=== PATIENT | female | born 1985 | race Caucasian/White ===

== ENCOUNTER 2016-06-19 18:30 | Emergency (ER) | payer BC ==
[~2016-06-19] VITALS: Ht 167.6 cm; Wt 77.6 kg
[~2016-06-19 18:30] MED LIST: BCPILLS PO; EPP3/2 IM; LEVO-459 PO; LISI-461 PO; VNTHFA/IN INH
[2016-06-19 18:39] VITALS: TEMP 36.7; Ht 167.6 cm; Wt 77.6 kg
[2016-06-19] MEDS ORDERED: ONDANSETRON INJ 2 MG/ML 2 ML VIAL IV STA (19:30)
[2016-06-19] MEDS ORDERED: SODIUM CHLORIDE 0.9% 500ML 500 ML IV STA (19:30)
[2016-06-19 19:36] LABS: BASO % 0.2 %; BASO ABS # 0.02 K/uL (0-0.2); COMPLETE YES; EOS % 0.9 %; HEMATOCRIT 38.2 % (37-47); IG% 0.2 %; LYMPH % 20.7 %; LYMPH ABS # 2.69 K/uL (1.2-3.4); MEAN CELL VOLUME 85.3 fL (80-100); MEAN CORPUSCULAR HEMOGLOBIN 29.7 pg (25-34); MEAN CORPUSCULAR HGB CONC 34.8 g/dl (32-36); MEAN PLATELET VOLUME 10.6 fL (7.4-10.4); MONO % 8.8 %; NEUT % 69.2 %; PLATELET COUNT 326 K/uL (130-400); RED BLOOD COUNT 4.48 M/uL (4.2-5.4); WHITE BLOOD COUNT 13.01 K/uL (4.8-10.8)
[2016-06-19 19:55] LABS: URINE APPEARANCE CLEAR (CLEAR); URINE BILIRUBIN NEG (NEG); URINE COLOR YELLOW; URINE EPITHELIAL CELL AUTO >30 /lpf (0-5); URINE NITRITE NEG (NEG); URINE SPECIFIC GRAVITY 1.013 (1.000-1.030); UROBILINOGEN NEG (NEG); ZZUR CULT IF INDIC CLEAN CATCH NO
[2016-06-19 19:58] LABS: MANUAL MICROSCOPIC REQUIRED? NO; REVIEW REQ? NO
[2016-06-19 20:02] LABS: BUN/CREATININE RATIO 13.3 (10-20); CALCIUM 9.5 mg/dl (8.5-10.1); CREATININE 0.98 mg/dl (0.60-1.20); POTASSIUM 4.1 mmol/L (3.5-5.1)
--- NOTE | 2016-06-19 21:35 | DIAGNOSTIC IMAGING REPORT ---
ABDOMINAL ULTRASOUND, RIGHT UPPER QUADRANT HISTORY: Right upper quadrant abdominal pain.. COMPARISON: Abdominal ultrasound and CT 03/01/2016. FINDINGS: Pancreas: Bulbous appears a pancreatic head is unchanged compared to the prior CT. Therefore, this is likely within the range of normal limits. Pancreatic echotexture is within normal limits. Liver: No change in the 1.3 cm hypoechoic nodule either within or adjacent to the left hepatic lobe. Gallbladder: No gallbladder wall thickening. No gallstones. CBD: 4 mm. Right kidney: No hydronephrosis. IMPRESSION: 1. No significant change compared to prior study. 2. Normal gallbladder. No gallstones. 3. No change in 1.3 cm hypoechoic nodule either within or adjacent to the left hepatic lobe. Of note, there is no definite corresponding abnormality seen on the prior CT at this location. Electronically signed by: Terry Mackey M.D. 06/19/2016 9:33 PM Dictated Date/Time: 06/19/2016 9:28 PM
[2016-06-19 22:34] VITALS: BP 127/76; PULSE 76; O2SAT 99
--- NOTE | 2016-06-20 00:41 | EMERGENCY ROOM VISIT NOTE ---
History Report prepared by Lisa: Elvia Mcdowell Under the Supervision of: Dr. Josh Bernal D.O. First contact with patient: 19:09 Chief Complaint: ABDOMINAL PAIN Stated Complaint: STOMACH PAINS Nursing Triage Summary: pt reports abd pain. Ongoing since /Mar. seen by PCP today, "the test results arent back yet. they took blood, urine and did a CT scan". now worsening. denies n/v/d. History of Present Illness The patient is a 31 year old female who presents to the Emergency Room with complaints of worsening epigastric abdominal pain that started 3 months ago. The patient was admitted to the hospital 3 months ago for a kidney infection and she state that she has been experiencing symptoms since then, but the abdominal pain has been getting progressively worse. The pain radiates into both sides of her abdomen and wraps around in to her back. Nothing makes the pain better or worse and it does not seem to be correlated to movement or eating and drinking. She is also experiencing nausea and diarrhea, but denies any urinary symptoms. Her most recent bowel movement was this morning. The patient saw her PCP earlier today and had an outpatient CT done at [facility] along with blood work and an urine sample. The patient's abdomen and pelvis CT from 1350 today without IV or oral contrast showed no acute pathology. Her UA was negative, her BMP was unremarkable, and she had leukocytosis at 12,000. The patients last normal menstrual period was last week. She denies any previous abdominal surgeries, so she still has her gallbladder and appendix. 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 Source of History: patient Onset: 3 months ago Position: abdomen (epigastric) Timing: worsening Associated Symptoms: + back pain, + diarrhea, + nausea, No urinary symptoms Review of Systems See HPI for pertinent positives & negatives. A total of 10 systems reviewed and were otherwise negative. 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 (4) Wilms' tumor Family History Heart disease Hypertension Kidney disease Kidney stones Lung disease Social History Smoking Status: Never Smoker Drug Use: none Marital Status: Housing Status: lives with family Current/Historical Medications Scheduled Albuterol Hfa (Ventolin Hfa), 2-4 PUFFS INH Q6H Control Pills ( Control Pills), 1 TAB PO DAILY Lisinopril (Lisinopril), 10 MG PO DAILY Scheduled PRN Epinephrine (Epipen), 0.3 MG IM UD PRN for ALLERGIC REACTION Allergies Coded Allergies: BEE STING (Verified Allergy, Intermediate, HIVES,SOB ,SHOCK, 06/19/16) Hydrocodone (Verified Adverse Reaction, Intermediate, N&V, 06/19/16) Physical Exam Vital Signs Date Time Temp Pulse Resp B/P Pulse Ox O2 Delivery O2 Flow Rate FiO2 06/19/16 22:34 76 18 127/76 99 06/19/16 21:28 79 16 132/73 98 Room Air 06/19/16 18:39 36.7 89 18 129/81 95 Room Air Physical Exam GENERAL: alert, sitting up in bed, well appearing, well nourished, no acute distress, non-toxic EYE EXAM: normal conjunctiva OROPHARYNX: no exudate, no erythema, lips, buccal mucosa, and tongue normal and mucous membranes are moist NECK: supple, no nuchal rigidity, no adenopathy, non-tender LUNGS: Clear to auscultation. Normal chest wall mechanics HEART: no murmurs, S1 normal and S2 normal ABDOMEN: abdomen soft, mildly tender in the epigastric region, normo-active bowel sounds, no masses, no rebound or guarding. BACK: Back is symmetrical on inspection and there is no deformity, no midline tenderness, no CVA tenderness. SKIN: no rashes and no bruising UPPER EXTREMITIES: upper extremities are grossly normal. LOWER EXTREMITIES: No pitting edema. NEURO EXAM: Normal sensorium, cranial nerves II-XII grossly intact, normal speech, no gross weakness of arms, no gross weakness of legs. Medical Decision & Procedures ER Provider Diagnostic Interpretation: US results have been interpreted by the radiologist and reviewed by me. ABDOMINAL ULTRASOUND, RIGHT UPPER QUADRANT IMPRESSION: 1. No significant change compared to prior study. 2. Normal gallbladder. No gallstones. 3. No change in 1.3 cm hypoechoic nodule either within or adjacent to the left hepatic lobe. Of note, there is no definite corresponding abnormality seen on the prior CT at this location. Laboratory Results 06/19/16 19:19 Red Blood Count 4.48, Mean Corpuscular Volume 85.3, Mean Corpuscular Hemoglobin 29.7, Mean Corpuscular Hemoglobin Concent 34.8, Mean Platelet Volume 10.6, Neutrophils (%) (Auto) 69.2, Lymphocytes (%) (Auto) 20.7, Monocytes (%) (Auto) 8.8, Eosinophils (%) (Auto) 0.9, Basophils (%) (Auto) 0.2, Neutrophils # (Auto) 9.02, Lymphocytes # (Auto) 2.69, Monocytes # (Auto) 1.14, Eosinophils # (Auto) 0.12, Basophils # (Auto) 0.02 06/19/16 19:19 Test 06/19/16 19:19 06/19/16 19:37 White Blood Count 13.01 K/uL (4.8-10.8) Red Blood Count 4.48 M/uL (4.2-5.4) Hemoglobin 13.3 g/dL (12.0-16.0) Hematocrit 38.2 % (37-47) Mean Corpuscular Volume 85.3 fL (80-100) Mean Corpuscular Hemoglobin 29.7 pg (25-34) Mean Corpuscular Hemoglobin Concent 34.8 g/dl (32-36) Platelet Count 326 K/uL (130-400) Mean Platelet Volume 10.6 fL (7.4-10.4) Neutrophils (%) (Auto) 69.2 % Lymphocytes (%) (Auto) 20.7 % Monocytes (%) (Auto) 8.8 % Eosinophils (%) (Auto) 0.9 % Basophils (%) (Auto) 0.2 % Neutrophils # (Auto) 9.02 K/uL (1.4-6.5) Lymphocytes # (Auto) 2.69 K/uL (1.2-3.4) Monocytes # (Auto) 1.14 K/uL (0.11-0.59) Eosinophils # (Auto) 0.12 K/uL (0-0.5) Basophils # (Auto) 0.02 K/uL (0-0.2) RDW Standard Deviation 40.8 fL (36.4-46.3) RDW Coefficient of Variation 13.0 % (11.5-14.5) Immature Granulocyte % (Auto) 0.2 % Immature Granulocyte # (Auto) 0.02 K/uL (0.00-0.02) Anion Gap 10.0 mmol/L (3-11) Est Creatinine Clear Calc Drug Dose 89.1 ml/min Estimated GFR () 90.3 Estimated GFR (Non- 78.0 BUN/Creatinine Ratio 13.3 (10-20) Calcium Level 9.5 mg/dl (8.5-10.1) Total Bilirubin 0.4 mg/dl (0.2-1) Direct Bilirubin 0.1 mg/dl (0-0.2) Aspartate Amino Transf (AST/SGOT) 22 U/L (15-37) Alanine Aminotransferase (ALT/SGPT) 27 U/L (12-78) Alkaline Phosphatase 89 U/L (45-117) Total Protein 7.8 gm/dl (6.4-8.2) Albumin 3.5 gm/dl (3.4-5.0) Lipase 358 U/L (73-393) Urine Color YELLOW Urine Appearance CLEAR (CLEAR) Urine pH 5.0 (4.5-7.5) Urine Specific [place] 1.013 (1.000-1.030) Urine Protein NEG (NEG) Urine Glucose (UA) NEG (NEG) Urine Ketones 1+ (NEG) Urine Occult Blood NEG (NEG) Urine Nitrite NEG (NEG) Urine Bilirubin NEG (NEG) Urine Urobilinogen NEG (NEG) Urine Leukocyte Esterase SMALL (NEG) Urine WBC (Auto) 5-10 /hpf (0-5) Urine RBC (Auto) 0-4 /hpf (0-4) Urine Hyaline Casts (Auto) 1-5 /lpf (0-5) Urine Epithelial Cells (Auto) >30 /lpf (0-5) Urine Bacteria (Auto) NEG (NEG) Urine Test NEG (NEG) Laboratory results per my review. Medications Administered Medications (Trade) Dose Ordered Sig/Sandeep Route Start Time Stop Time Status Last Admin Dose Admin Sodium Chloride (Nss 500ml) 500 ml @ 999 mls/hr Q31M STAT IV 06/19/16 19:30 06/19/16 20:00 DC 06/19/16 19:34 999 MLS/HR Ondansetron HCl (Zofran Inj) 4 mg NOW STAT IV 06/19/16 19:30 06/19/16 19:31 DC 06/19/16 19:34 4 MG ED Course ED COURSE: Vital signs were reviewed and showed normal. The patients medical record was reviewed The above diagnostic studies were performed and reviewed. ED treatments and interventions as stated above. 1920: The patient was evaluated in room C11. A complete history and physical examination was performed. 1929: Ordered Zofran Inj 4 mg IV, Sodium Chloride 500 ml @ 999 mls/hr IV 2129: I reassessed and updated the patient. She would not like anything else for pain. 2207: Upon reevaluation, the patient is doing well. I discussed my findings with the patient and she understands and agrees with the treatment plan. Based on the patients age, coexisting illnesses, exam and lab findings the decision to treat as an outpatient was made. The patient remained stable while under my care. The patient appeared well at the time of discharge. Medical Decision Differential diagnoses includes but is not limited to gastritis, peptic ulcer disease, GERD, gallbladder disease, pancreatitis, small bowel obstruction, acute coronary syndrome, pericarditis, ischemic bowel, irritable bowel disease, irritable bowel syndrome, appendicitis, diverticulitis, malignancy, hernia, urinary tract infection, torsion, /ectopic , perforation, trauma, infectious. Patient is a 31-year-old female who presents the ER for abdominal pain in the epigastric region that has been present since early March of this past year. She notes no exacerbating or remitting factors. Does not correlate with eating and drinking. No previous abdominal surgeries. No blood in her stool. Labs are remarkable for a mild leukocytosis of 13,000. BMP along with LFTs, bilirubin and lipase were unremarkable. Urine was negative. UA was contaminated with multiple epithelial cells. She has no urinary complaints. Will not treat. She had a CT done today at 2 PM which was a non-con study which was completely unremarkable per the report from [facility]. Ultrasound of the right upper quadrant showed a normal gallbladder. Patient declined any pain meds on the ER. She was updated regards to findings. She is instructed to follow up with her primary care doctor and may benefit from following up with GI. Patient and her mother were updated at bedside. Discussed with Pt concerning signs and symptoms to watch out for. Pt was instructed to follow up with their PCP and discussed with the patient their option to return to the ED at anytime for persistent or worsening symptoms. The appropriate anticipatory guidance and out-patient management, including indications for return to the emergency department, were explained at length to the patient and understood. Impression Primary Impression: Epigastric abdominal pain Additional Impression: Leukocytosis Scribe Attestation The scribe's documentation has been prepared under my direction and personally reviewed by me in its entirety. I confirm that the note above accurately reflects all work, treatment, procedures, and medical decision making performed by me. Departure Information Dispostion Home / Self-Care Referrals Rani Dyer PA-C (PCP) Forms HOME CARE DOCUMENTATION FORM, IMPORTANT VISIT INFORMATION Patient Instructions Abdominal Pain - [facility], [facility] Additional Instructions Please follow up with your primary care doctor with in the next 24 hours. Any worsening of your symptoms, please return to the ED immediately. This includes fevers greater than 100.4, worsening abdominal pain, persistent nausea vomiting , or any other concerning signs or symptoms from your standpoint. Please take Tylenol as needed for pain. Problem Qualifiers Additional Impression: Leukocytosis Leukocytosis type: unspecified Qualified Codes: D72.829 - Elevated white blood cell count, unspecified
== END 2016-06-19 22:36 | disposition home or self-care (01) ==
LOC: C.EDB 18:31 → C.EDC 22:36
DX: R10.13 Epigastric pain (principal); D72.829 Elevated white blood cell count, unspecified; J45.909 Unspecified asthma, uncomplicated; I42.7 Cardiomyopathy due to drug and external agent; Z85.528 Personal history of other malignant neoplasm of kidney; Z90.5 Acquired absence of kidney; Z82.49 Family history of ischemic heart disease and other diseases of the circulatory system; Z84.1 Family history of disorders of kidney and ureter; Z83.6 Family history of other diseases of the respiratory system; Z79.3 Long term (current) use of hormonal contraceptives; Z79.899 Other long term (current) drug therapy

== ENCOUNTER 2016-06-24 06:46 | Emergency (ER) | payer BC ==
[~2016-06-24] VITALS: Ht 167.6 cm; Wt 76.0 kg
[~2016-06-24 06:46] MED LIST changes: -LEVO-459 PO
[2016-06-24 06:50] VITALS: TEMP 36.8; Ht 167.6 cm; Wt 76.0 kg
[2016-06-24] MEDS ORDERED: SODIUM CHLORIDE 0.9% 1000ML 1,000 ML IV STA ×2 (07:11)
[2016-06-24] MEDS ORDERED: ONDANSETRON INJ 2 MG/ML 2 ML VIAL IV STA (07:27)
[2016-06-24] MEDS ORDERED: FENTANYL CITRATE INJ 50 MCG/1 ML 2 ML VIAL IV STA (07:27)
[2016-06-24] MEDS ORDERED: FAMOTIDINE 20MG/102 ML D5W IV STA (07:27)
[2016-06-24 07:39] VITALS: O2SAT 98
[2016-06-24 07:40] LABS: BASO % 0.2 %; BASO ABS # 0.02 K/uL (0-0.2); COMPLETE YES; HEMATOCRIT 38.1 % (37-47); IG% 0.2 %; LYMPH % 17.9 %; MEAN CORPUSCULAR HGB CONC 34.9 g/dl (32-36); MONO % 6.7 %; PLATELET COUNT 319 K/uL (130-400); RED BLOOD COUNT 4.43 M/uL (4.2-5.4)
[2016-06-24 07:56] LABS: ALT/SGPT 24 U/L (12-78); AMYLASE 77 U/L (25-115); BLOOD UREA NITROGEN 13 mg/dl (7-18); BUN/CREATININE RATIO 14.7 (10-20); CALCIUM 9.2 mg/dl (8.5-10.1); CARBON DIOXIDE 24 mmol/L (21-32); CHLORIDE 106 mmol/L (98-107); GLUCOSE 93 mg/dl (70-99); POTASSIUM 4.1 mmol/L (3.5-5.1); SODIUM 138 mmol/L (136-145)
[2016-06-24 07:59] LABS: ALKALINE PHOSPHATASE 93 U/L (45-117); AST/SGOT 17 U/L (15-37)
[2016-06-24 09:40] LABS: URINE APPEARANCE CLEAR (CLEAR); URINE BILIRUBIN NEG (NEG); URINE COLOR YELLOW; URINE NITRITE NEG (NEG); URINE SPECIFIC GRAVITY 1.022 (1.000-1.030); UROBILINOGEN NEG (NEG)
[2016-06-24 09:41] LABS: MANUAL MICROSCOPIC REQUIRED? NO; REVIEW REQ? NO
[2016-06-24] MEDS ORDERED: ONDA4TAB10 SL (10:58)
[2016-06-24] MEDS ORDERED: OMEP40CA41 PO (10:58)
--- NOTE | 2016-06-24 10:59 | EMERGENCY ROOM VISIT NOTE ---
History First contact with patient: 06:58 Chief Complaint: ABDOMINAL PAIN Stated Complaint: STOMACH PAINS Nursing Triage Summary: pt to the ED with c/o diffuse abd pain for the past 1.5 week was seen here History of Present Illness Patient is a 31-year-old white female who returns to the emergency department for ongoing abdominal. She has had symptoms for about 3 months, but was most recently at her PCP and here in the emergency department just 5 days ago. She had a thorough workup performed at that time including laboratory studies, CT scan and biliary ultrasound all which were unremarkable. The patient reports that since she was here in the emergency department, her pain has gotten worse. She does as scribe that as a constant, achy, epigastric pain that she presently rates an 8/10. The pain is increasing in intensity. She states that it has her doubled over at times. She reports associated nausea, few episodes of yellow emesis, subjective fever and chills, and has had 2 loose bowel movements today, when they previously had been normal. She denies melena, hematemesis or hematochezia. She has taken nothing but Tylenol for her symptoms over the last several months. She states that after she left the emergency department here last week she was told that she would need to see gastroenterology. She has not been given a GI appointment as of yet. She denies any chronic NSAID or aspirin use. She denies any dysuria, frequency, urgency, hematuria or flank pain. She is status post nephrectomy. Her last menstrual period was 06/08. She denies any change in her prescription medications. There is no family history of any GI ailments that she is aware of. Review of Systems Review of systems as per HPI. All other systems reviewed were negative. 10 systems reviewed. 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 See Problem List. Family History Heart disease Hypertension Kidney disease Kidney stones Lung disease Social History Smoking Status: Never Smoker Drug Use: none Marital Status: Housing Status: lives with family Occupation Status: employed Current/Historical Medications Scheduled Albuterol Hfa (Ventolin Hfa), 2-4 PUFFS INH Q6H Control Pills ( Control Pills), 1 TAB PO DAILY Lisinopril (Lisinopril), 10 MG PO DAILY Omeprazole (Prilosec), 40 MG PO DAILY Scheduled PRN Epinephrine (Epipen), 0.3 MG IM UD PRN for ALLERGIC REACTION Ondasetron Odt (Zofran Odt), 4 MG SL Q6H PRN for Nausea or Vomiting Allergies Coded Allergies: BEE STING (Verified Allergy, Intermediate, HIVES,SOB ,SHOCK, 06/24/16) Hydrocodone (Verified Adverse Reaction, Intermediate, N&V, 06/24/16) Physical Exam Vital Signs Date Time Temp Pulse Resp B/P Pulse Ox O2 Delivery O2 Flow Rate FiO2 06/24/16 11:09 73 18 104/73 99 06/24/16 09:21 61 16 100/67 95 Room Air 06/24/16 08:13 62 16 110/69 96 Room Air 06/24/16 07:52 67 06/24/16 07:40 74 16 116/73 96 Room Air 06/24/16 07:39 98 Room Air 06/24/16 06:50 36.8 97 16 129/86 100 Physical Exam CONSTITUTIONAL: Patient is a well-appearing 31-year-old white female who is awake and alert and in no acute distress. EYES: Pupils equal, round, reactive to light and accommodation. EOMs intact without nystagmus. Sclera are anicteric. ENT: Tympanic membranes intact, with normal landmarks. External canals are clear. Oral and nasopharynx are clear. Mucous membranes are moist, no lesions , tongue and gums appear normal. CARDIOVASCULAR: Regular rate and rhythm, with normal S1 and S2, no murmur or gallop or rub is heard. No carotid bruits auscultated. No JVD. Peripheral pulses easy to palpable. RESPIRATORY: Breath sounds equal and clear to auscultation without wheezes, rales, or rhonchi heard. Full and equal chest expansion without accessory muscle use or retractions. GI: Bowel sounds are present. Well-healed surgical scars noted. Abdomen is soft, nondistended, tender to palpation in the epigastric region, without guarding, rebound or rigidity. MUSCULOSKELETAL: Full range of motion of extremities x 4 with good strength. No cyanosis, edema, joint tenderness or swelling. No deformity. INTEGUMENTARY: No lesions or rash, normal skin turgor. NEUROLOGICAL: Alert, oriented, and cooperative. Cranial nerves, sensation and strength grossly intact. Pupils round, equal, and react to light, EOMs are full. LYMPH: No lymphadenopathy. Medical Decision & Procedures Laboratory Results 06/24/16 07:30 Red Blood Count 4.43, Mean Corpuscular Volume 86.0, Mean Corpuscular Hemoglobin 30.0, Mean Corpuscular Hemoglobin Concent 34.9, Mean Platelet Volume 11.0, Neutrophils (%) (Auto) 74.0, Lymphocytes (%) (Auto) 17.9, Monocytes (%) (Auto) 6.7, Eosinophils (%) (Auto) 1.0, Basophils (%) (Auto) 0.2, Neutrophils # (Auto) 9.12, Lymphocytes # (Auto) 2.20, Monocytes # (Auto) 0.82, Eosinophils # (Auto) 0.12, Basophils # (Auto) 0.02 06/24/16 07:30 Test 06/24/16 07:30 06/24/16 09:18 White Blood Count 12.30 K/uL (4.8-10.8) Red Blood Count 4.43 M/uL (4.2-5.4) Hemoglobin 13.3 g/dL (12.0-16.0) Hematocrit 38.1 % (37-47) Mean Corpuscular Volume 86.0 fL (80-100) Mean Corpuscular Hemoglobin 30.0 pg (25-34) Mean Corpuscular Hemoglobin Concent 34.9 g/dl (32-36) Platelet Count 319 K/uL (130-400) Mean Platelet Volume 11.0 fL (7.4-10.4) Neutrophils (%) (Auto) 74.0 % Lymphocytes (%) (Auto) 17.9 % Monocytes (%) (Auto) 6.7 % Eosinophils (%) (Auto) 1.0 % Basophils (%) (Auto) 0.2 % Neutrophils # (Auto) 9.12 K/uL (1.4-6.5) Lymphocytes # (Auto) 2.20 K/uL (1.2-3.4) Monocytes # (Auto) 0.82 K/uL (0.11-0.59) Eosinophils # (Auto) 0.12 K/uL (0-0.5) Basophils # (Auto) 0.02 K/uL (0-0.2) RDW Standard Deviation 40.5 fL (36.4-46.3) RDW Coefficient of Variation 12.8 % (11.5-14.5) Immature Granulocyte % (Auto) 0.2 % Immature Granulocyte # (Auto) 0.02 K/uL (0.00-0.02) Anion Gap 8.0 mmol/L (3-11) Est Creatinine Clear Calc Drug Dose 96.0 ml/min Estimated GFR () 100.1 Estimated GFR (Non- 86.4 BUN/Creatinine Ratio 14.7 (10-20) Calcium Level 9.2 mg/dl (8.5-10.1) Total Bilirubin 0.3 mg/dl (0.2-1) Direct Bilirubin < 0.1 mg/dl (0-0.2) Aspartate Amino Transf (AST/SGOT) 17 U/L (15-37) Alanine Aminotransferase (ALT/SGPT) 24 U/L (12-78) Alkaline Phosphatase 93 U/L (45-117) Total Protein 7.7 gm/dl (6.4-8.2) Albumin 3.2 gm/dl (3.4-5.0) Amylase Level 77 U/L (25-115) Lipase 400 U/L (73-393) Urine Color YELLOW Urine Appearance CLEAR (CLEAR) Urine pH 5.0 (4.5-7.5) Urine Specific [place] 1.022 (1.000-1.030) Urine Protein NEG (NEG) Urine Glucose (UA) NEG (NEG) Urine Ketones NEG (NEG) Urine Occult Blood NEG (NEG) Urine Nitrite NEG (NEG) Urine Bilirubin NEG (NEG) Urine Urobilinogen NEG (NEG) Urine Leukocyte Esterase NEG (NEG) Urine Test NEG (NEG) Medications Administered Medications (Trade) Dose Ordered Sig/Sandeep Route Start Time Stop Time Status Last Admin Dose Admin Sodium Chloride 1,000 ml @ 999 mls/hr Q1H1M STAT IV 06/24/16 07:11 06/24/16 08:11 DC 06/24/16 07:31 999 MLS/HR Sodium Chloride (Nss 1000ml) 1,000 ml @ 250 mls/hr Q4H STAT IV 06/24/16 07:11 06/24/16 11:10 DC 06/24/16 09:16 250 MLS/HR Ondansetron HCl (Zofran Inj) 4 mg NOW STAT IV 06/24/16 07:27 06/24/16 07:29 DC 06/24/16 07:37 4 MG Famotidine (Pepcid 20mg/100 ml) 20 mg ONE STAT IV 06/24/16 07:27 06/24/16 07:29 DC 06/24/16 07:37 20 MG Fentanyl Citrate (Fentanyl Inj) 50 mcg NOW STAT IV 06/24/16 07:27 06/24/16 07:29 DC 06/24/16 07:37 50 MCG ED Course Patient was seen and evaluated as above. Her old records were reviewed, including her ED visit from the . IV access was obtained. Patient requested medication for discomfort. She was hydrated with normal saline solution and medicated with Zofran 4 mg, Pepcid 20 mg and fentanyl 50 g IV. CBC with differential, BMP, LFTs, amylase, lipase, urinalysis and urine test were performed. Patient's laboratory studies revealed a minimally elevated white count at 12,300 , which is from last Wednesday. Electrolytes and liver functions are within normal limits. Transaminases are not elevated. Amylase is within normal limits and lipase is just minimally elevated,. I do not suspect that this indicates acute pancreatitis and is more likely related to her recent vomiting. Urinalysis is completely clean, without signs of infection. test is negative. All laboratory and diagnostic imaging studies were reviewed with the patient and her . She has had several months of epigastric discomfort of unclear etiology. Differential diagnoses entertained include GERD, esophagitis , gastritis, peptic ulcer disease, pancreatitis, biliary colic, acute cholecystitis, cholelithiasis, ascending cholangitis, among others. She underwent a thorough workup just a few days ago, and return to the emergency Department with worsening symptoms. She has a benign abdominal exam. She has a minimally elevated lipase, otherwise laboratory studies are unremarkable. It was not felt that any repeat diagnostic imaging was indicated at this time. I did discuss a trial of a PPI with the patient, and she is in agreement. She will be placed on Prilosec 40 mg daily. Agree that she would likely benefit from GI evaluation for further workup. She was encouraged to call her primary care provider to help facilitate this. Certainly if her symptoms worsen at any point she should return to the emergency department. She expressed understanding of this and was agreeable. The patient rated her discomfort a 4/ 10 at discharge. Vital signs were stable. Medical Decision See ED course Impression Primary Impression: Epigastric abdominal pain Departure Information Prescriptions Omeprazole (PRILOSEC) 40 Mg Cap 40 MG PO DAILY, #30 CAP 1 Refill Prov: Yudelka Santos PA 06/24/16 Ondasetron Odt (ZOFRAN ODT) 4 Mg Tab 4 MG SL Q6H Y for Nausea or Vomiting, #20 TAB Prov: Yudelka Santos PA 06/24/16 Referrals Rani Dyer PA-C (PCP) Patient Instructions My [facility] Additional Instructions DO NOT drive, drink alcohol, operate machinery, or perform dangerous activities today. You were given medications in the ER that can affect your ability to safely function or operate a vehicle. Prilosec 40 mg: Take 1 tablet daily. Acetaminophen(Tylenol) may be used for fever or pain. Use 1000mg every eight hours as needed. Avoid using more than 3000mg in a 24 hour period. This is available over the counter. Zofran(odansetron) tablets 4mg: Take one and allow it to dissolve in your mouth every four hours as needed for nausea or vomiting. Read all the package inserts or medication information paperwork provided. If you have any questions or concerns call your primary provider, pharmacist or the ER for assistance. Rest and drink plenty of fluids as tolerated. Slow sips of water or sports drinks are recommended instead of large amounts all at once. Continue current medications. Once your stomach is settled start with a clear liquid diet (jello, soup broth, etc.) and then advance as tolerated. Avoid greasy, fatty or acidic foods. Return to the ER immediately for worsening or persistent abdominal pain, vomiting, fevers, chest pains, difficulty breathing, black or bloody stools, worsening of your condition, or as needed. Follow up with your primary physician in 1-2 days for a recheck of your current condition.
[2016-06-24 11:09] VITALS: BP 104/73; PULSE 73; O2SAT 99
== END 2016-06-24 11:10 | disposition home or self-care (01) ==
LOC: C.EDB 06:46
DX: R10.13 Epigastric pain (principal); J45.909 Unspecified asthma, uncomplicated; I42.7 Cardiomyopathy due to drug and external agent; Z85.528 Personal history of other malignant neoplasm of kidney; Z90.5 Acquired absence of kidney; Z82.49 Family history of ischemic heart disease and other diseases of the circulatory system; Z84.1 Family history of disorders of kidney and ureter; Z83.6 Family history of other diseases of the respiratory system; Z79.899 Other long term (current) drug therapy; Z79.3 Long term (current) use of hormonal contraceptives

== ENCOUNTER → 2017-01-21 | Day surgery (SDC) | payer BC ==
[2017-01-20 08:15] VITALS: Ht 166.4 cm; Wt 81.8 kg
[~2017-01-21] VITALS: Ht 166.4 cm; Wt 81.8 kg
[~2017-01-21] MED LIST changes: +FENTANYL CITRATE INJ 50 MCG/1 ML 2 ML VIAL ONE; +LIDOCAINE HCL 2% 2 ML VIAL (20MG/ML) ONE; +PROPOFOL IV EMULSION 10 MG/ML 20 ML VIAL IV ONE; +RANI150T3 PO; +SODIUM CHLORIDE 0.9% 500ML 500 ML IV ONE
--- NOTE | 2017-01-21 09:54 | Endo History and Physical ---
History & Physical Date of Service: Jan 21, 2017. Chief Complaint: Reflux, epigastric burning Referring Physician: Homa History of Present Illness heartburn and epigastric burning and nausea Past Surgical History Hx Cardiac Surgery: No Hx Internal Defibrillator: No Hx Pacemaker: No Hx Abdominal Surgery: Yes (TUBAL LIGATION) Hx of Implantable Prosthesis: No Hx Post-Op Nausea and Vomiting: No Hx Cancer Surgery: Yes (WILM'S TUMOR-LEFT NEPHRECTOMY) Hx Thoracic Surgery: No Hx Orthopedic: No Hx Urinary Tract Surgery: No Family History None Social History Smoking Status: Never Smoker Hx Substance Use: No Hx Alcohol Use: No Allergies Coded Allergies: BEE STING (Verified Allergy, Intermediate, HIVES,SOB ,SHOCK, 01/20/17) Hydrocodone (Verified Adverse Reaction, Intermediate, N&V, 01/20/17) Current Medications Reported Home Medications Medications Dose Route/Sig Max Daily Dose Days Date Category Zantac (Ranitidine HCl) 150 Mg Tab 150 Mg PO HS 01/20/17 Reported Ventolin Hfa (Albuterol) 200 Puffs/18485 Mcg Aers 2-4 Puffs INH Q6H 03/01/16 Reported Control Pills (Miscellaneous) Tab 1 Tab PO QAM 12/26/13 Reported Epipen (Epinephrine) 0.3 Mg/0.3 Ml Inj 0.3 Mg IM UD PRN 12/26/13 Reported Lisinopril 10 Mg Tab 10 Mg PO QAM 12/26/13 Reported Vital Signs Weight (Kilograms): 81.82 Height (Feet): 5 Height (Inches): 5.5 Date Time Temp Pulse Resp B/P (MAP) Pulse Ox O2 Delivery O2 Flow Rate FiO2 01/21/17 09:42 36.7 79 79 111/79 (90) 97 Room Air Physical Exam General Appearance: no apparent distress Respiratory/Chest: Auscultation: breath sounds normal Cardiovascular: Heart Auscultation: RRR Abdomen: Inspection & Palpation: soft Liver: non-tender Assessment and Plan stable for EGD
--- NOTE | 2017-01-21 10:19 | Discharge Instructions ---
Endoscopy Patient Instructions Date / Procedure(s) Performed Jan 21, 2017. EGD Allergy Information Coded Allergies: BEE STING (Verified Allergy, Intermediate, HIVES,SOB ,SHOCK, 01/20/17) Hydrocodone (Verified Adverse Reaction, Intermediate, N&V, 01/20/17) Discharge Date / Findings Jan 21, 2017. normal EGD Provider Instructions Activity Restrictions - No exercising or heavy lifting for 24 hours. - Do not drink alcohol the day of the procedure. - Do not drive a car or operate machinery until the day after the procedure. - Do not make any important decisions or sign important papers in 24 hours after the procedure. Following Day: - Return to full activity which may include returning to work/school. Diet Start your diet with liquids and light foods (jello, soup, juice, toast). Then eat your usual diet if not nauseated. Treatment For Common After Affects For mild abdominal pain, bloating, or excessive gas: - Rest - Eat lightly - Lie on right side Follow-Up Information Follow-up with Homa as scheduled Anesthesia Information What You Should Know You have had a procedure that required some medicine to reduce anxiety and discomfort. This treatment is called moderate sedation. After receiving the treatment, you may be sleepy, but you will be able to breathe on your own. The effects of the treatment may last for several hours. Follow these instructions along with Activity/Diet recommendations noted above: * Do NOT do anything where dizziness or clumsiness would be dangerous. * Rest quietly at home today, then you can be up and about tomorrow. * Have a responsible person stay with you the rest of today. * You may have had an I.V. today. If so, you may take the dressing off later today. Recommendations Call your doctor if: * Trouble breathing * Continuous vomiting for more than 24 hours * Temperature above 101 degrees * Severe abdominal pain or bloating * Pain not relieved by pain medicine ordered * There is increased drainage or redness from any incision * A large amount of rectal bleeding greater than 2-3 tablespoons. (If you had a polyp/s removed or have hemorrhoids, a small amount of blood - from the rectum is to be expected.) * You have any unanswered questions or concerns. IN THE EVENT OF A SERIOUS EMERGENCY, GO TO THE NEAREST EMERGENCY ROOM Your discharge instructions were prepared by provider Manuel Camarena. Patient Instructions Signature Page Keyana Chairez Patient (or Guardian) Signature/Date: I have read and understand the instructions given to me by my caregivers. Caregiver/RN/Doctor Signature/Date: The above-named patient and/or guardian has received patient instructions on this date. + Original Patient Signature Page (only) stays with chart. Please make copy for patient.
[2017-01-21 10:46] VITALS: BP 125/87; PULSE 62; O2SAT 97
--- NOTE | 2017-01-21 10:46 | GI REPORT ---
Procedure Date: 01/21/2017 9:42 AM Procedure: Upper GI endoscopy Indications: Epigastric abdominal pain, Heartburn Medicines: See the Anesthesia note for documentation of the administered medications Complications: No immediate complications. Estimated Blood Loss: Estimated blood loss was minimal. Procedure: Pre-Anesthesia Assessment: - Prior to the procedure, a History and Physical was performed, and patient medications, allergies and sensitivities were reviewed. The patient's tolerance of previous anesthesia was reviewed. - The risks and benefits of the procedure and the sedation options and risks were discussed with the patient. All questions were answered and informed consent was obtained. - Patient identification and proposed procedure were verified prior to the procedure by the physician and the nurse. The procedure was verified in the pre-procedure area. - Pre-procedure physical examination revealed no contraindications to sedation. - After reviewing the risks and benefits, the patient was deemed in satisfactory condition to undergo the procedure. After obtaining informed consent, the endoscope was passed under direct vision. Throughout the procedure, the patient's blood pressure, pulse, and oxygen saturations were monitored continuously. The scope was introduced through the mouth, and advanced to the fourth part of the duodenum. Small bowel enteroscopy was deemed necessary due to symptoms concerning for celiac. The upper GI endoscopy was accomplished without difficulty. The patient tolerated the procedure well. Findings: The esophagus was normal. The stomach was normal. The duodenum to the 4th part was normal. Biopsies for histology were taken with a cold forceps for evaluation of celiac disease. Verification of patient identification for the specimen was done by the physician and nurse using the patient's name and medical record number. Estimated blood loss was minimal. The cardia and gastric fundus were normal on retroflexion. Impression: - Normal esophagus. - Normal stomach. - Normal duodenum to the 4th part. Biopsied. Recommendation: - Await pathology results. - Discharge patient to home. Manuel Camarena M.D. Manuel Camarena MD 01/21/2017 10:46:09 AM This report has been signed electronically. Note Initiated On: 01/21/2017 9:42 AM I attest to the content of the Intraoperative Record and orders documented therein, exceptions below
--- NOTE | 2017-01-21 12:06 | Anesthesiology Progress Note ---
Anesthesia Post Op Note Date & Time Jan 21, 2017 at 12:05 Vital Signs Pain Intensity: 0 Vital Signs Past 12 Hours Date Time Temp Pulse Resp B/P (MAP) Pulse Ox O2 Delivery O2 Flow Rate FiO2 01/21/17 10:46 62 16 125/87 (100) 97 Room Air 01/21/17 10:31 61 16 112/80 (91) 97 Room Air 01/21/17 10:16 72 13 105/76 (86) 97 Room Air 01/21/17 09:42 36.7 79 18 111/79 (90) 97 Room Air Notes Mental Status: alert / awake / arousable, participated in evaluation Pt Amnestic to Procedure: Yes Nausea / Vomiting: adequately controlled Pain: adequately controlled Airway Patency, RR, SpO2: stable & adequate BP & HR: stable & adequate Hydration State: stable & adequate Anesthetic Complications: no major complications apparent
== END | disposition home or self-care (01) ==
LOC: C.GI 09:10
PROVIDERS: ATTEND Internal Medicine Gastroenterology
DX: R10.13 Epigastric pain (principal); R12 Heartburn; J45.909 Unspecified asthma, uncomplicated; Z88.5 Allergy status to narcotic agent; Z98.51 Tubal ligation status; Z90.5 Acquired absence of kidney; Z90.89 Acquired absence of other organs

== ENCOUNTER 2017-11-22 11:31 | Emergency (ER) | payer OTHER ==
[~2017-11-22] VITALS: Ht 165.1 cm; Wt 84.1 kg
[~2017-11-22 11:31] MED LIST changes: +ACET-1505 PO; -FENTANYL CITRATE INJ 50 MCG/1 ML 2 ML VIAL ONE; -LIDOCAINE HCL 2% 2 ML VIAL (20MG/ML) ONE; -PROPOFOL IV EMULSION 10 MG/ML 20 ML VIAL IV ONE; +RANI150T2 PO; -RANI150T3 PO; -SODIUM CHLORIDE 0.9% 500ML 500 ML IV ONE
[2017-11-22 11:35] VITALS: TEMP 36.7; Ht 165.1 cm; Wt 84.1 kg
[2017-11-22] MEDS ORDERED: ALBUT/IPRATROP 3MG/0.5MG NEB 3 ML VIAL INH STA (12:15)
[2017-11-22 12:23] LABS: BASO % 0.1 %; BASO ABS # 0.01 K/uL (0-0.2); EOS % 0.8 %; EOS ABS # 0.07 K/uL (0-0.5); HEMATOCRIT 39.8 % (37-47); HEMOGLOBIN 13.6 g/dL (12.0-16.0); IG# 0.01 K/uL (0.00-0.02); LYMPH % 24.9 %; MEAN CORPUSCULAR HEMOGLOBIN 29.4 pg (25-34); MEAN CORPUSCULAR HGB CONC 34.2 g/dl (32-36); MEAN PLATELET VOLUME 12.5 fL (7.4-10.4); MONO % 8.6 %; MONO ABS # 0.76 K/uL (0.11-0.59); NEUT % 65.5 %; NEUT ABS # 5.77 K/uL (1.4-6.5); PLATELET COUNT 291 K/uL (130-400); RED CELL DISTRIBUTION WIDTH CV 13.3 % (11.5-14.5); RED CELL DISTRIBUTION WIDTH SD 40.8 fL (36.4-46.3); WHITE BLOOD COUNT 8.82 K/uL (4.8-10.8)
--- NOTE | 2017-11-22 12:25 | EMERGENCY ROOM VISIT NOTE ---
History First contact with patient: 12:04 Chief Complaint: CARDIAC ASSESSMENT Stated Complaint: TIGHTNESS IN CHEST History of Present Illness The patient is a 32 year old female who presents to the Emergency Room via private vehicle with complaints of "tightness in chest". The patient states that she last week had intermittent chest tightness/inability to catch a full breath. She states that it was not visibly worse with exertion however after walking up a hill she felt more out of breath than usual. She notes minimal discomfort that comes and goes. She states that she has history of asthma and anxiety. She also notes that she has been quite anxious lately. She notes that a portion of her heart is not as strong as it should be. She takes lisinopril to stop the deterioration. Earlier in her life she had a Wilms tumor , and received chemoradiation and subsequently he has done well. She follows with a research spec in [place]. She last saw them in December 2016. She states that now she feels as though the pain is more steady became concerned, therefore prompting her arrival here today. She rates the overall discomfort as a 4/10. No history of clots, DVT, PE, taking blood thinners, or ND. Review of Systems A complete 10-point Review of Systems was discussed with the patient, with pertinent positives and negatives listed in the History of Present Illness. All remaining Review of Systems questions can be considered negative unless otherwise specified. 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 (4) Wilms' tumor Family History Heart disease Hypertension Kidney disease Kidney stones Lung disease Social History Smoking Status: Never Smoker Alcohol Use: none Drug Use: none Marital Status: Housing Status: lives with family Occupation Status: employed Current/Historical Medications Scheduled Albuterol Hfa (Ventolin Hfa), 2 PUFFS INH Q6H Control Pills ( Control Pills), 1 TAB PO QAM Lisinopril (Lisinopril), 10 MG PO QAM Ranitidine HCl (Ranitidine HCl), 150 MG PO BID Scheduled PRN Epinephrine (Epipen), 0.3 MG IM UD PRN for ALLERGIC REACTION Physical Exam Vital Signs Date Time Temp Pulse Resp B/P (MAP) Pulse Ox O2 Delivery O2 Flow Rate FiO2 11/22/17 17:10 75 16 116/85 99 11/22/17 16:53 84 98 11/22/17 15:09 124 18 132/85 100 Room Air 11/22/17 15:01 150 28 100 Room Air 11/22/17 12:38 72 16 122/72 11/22/17 12:36 100 Room Air 11/22/17 11:48 71 11/22/17 11:35 36.7 81 16 105/82 100 Room Air Physical Exam VITAL SIGNS - Vital signs and nursing notes were reviewed. Stable. Afebrile. GENERAL -32-year-old female appearing her stated age who is in no acute distress. Communicates well with provider and answers questions appropriately. SKIN - Without rashes. No meningeal or petechial rash. HEAD - NC/AT. EYES - PERRL with EOMI bilaterally. Sclera anicteric. EARS - No deformities of external structures noted on gross examination bilaterally. NOSE - Midline and without cyanosis. No epistaxis or purulent drainage noted. MOUTH/OROPHARYNX - Without perioral cyanosis. NECK - Neck with FROM. Supple to palpation. LUNGS - Chest wall symmetric without accessory muscle use, intercostals retractions, or central cyanosis. Normal vesicular breath sounds CTA B/L. No wheezes, rales, or rhonchi appreciated. CARDIAC - RRR with S1/S2. No murmur, rubs, or gallops appreciated. ABDOMEN - Abdominal contour normal without pulsations or visible masses. BS normoactive all four quadrants. No tenderness, palpable masses, hepatosplenomegaly, or ascites noted. EXTREMITIES - No clubbing or peripheral cyanosis. No pretibial edema present. +5 /5 strength noted in UE/LE bilaterally. NEUROLOGIC - Cranial nerves II through XII grossly intact. Sensory intact to light touch throughout. PSYCH - A&Ox3 and cooperates fully with examiner. Pt is very pleasant and interacts well with examiner. Medical Decision & Procedures ER Provider Diagnostic Interpretation: CT ANGIOGRAPHY OF THE CHEST, PULMONARY EMBOLUS PROTOCOL CLINICAL HISTORY: Shortness of breath. Chest discomfort. COMPARISON STUDY: Chest CT July 22, 2010 and chest radiograph November 22, 2017. TECHNIQUE: Following IV administration of 69 mL of Optiray-320, helical axial images of the chest were obtained utilizing the pulmonary embolus protocol. Maximal intensity projections and sagittal and coronal reformats were viewed on an independent 3D workstation. IV contrast was administered without complication. A dose lowering technique was utilized adhering to the principles of ALARA. CT DOSE: 328.23 mGy.cm FINDINGS: No pulmonary emboli are identified. There is no evidence of thoracic aortic dissection. The size of the heart is normal. There is no pericardial effusion. No enlarged axillary, mediastinal or hilar lymph nodes are noted. Note is made of a 2.5 cm water attenuation left apical abnormality shown on axial image 252 of 278. This is located between the posterior aspect of the left first and second ribs and immediately posterior to the left vertebral artery. There may be associated bony remodeling without bony destruction. There is no consolidation to suggest pneumonia. No pneumothorax or pleural effusion is noted. Central airways are patent. Upper abdomen is unremarkable. IMPRESSION: 1. No pulmonary emboli identified. 2. 2.5 cm water attenuation left apical abnormality located between the first and second ribs. Differential considerations include a nerve sheath tumor, lateral meningocele and congenital cyst. An MRI of the thoracic spine with and without contrast could be obtained for further evaluation. 3. No acute intrathoracic findings. Electronically signed by: Rigo Lei M.D. 11/22/2017 2:23 PM Dictated Date/Time: 11/22/2017 1:28 PM SINGLE VIEW CHEST CLINICAL HISTORY: Chest discomfort. FINDINGS: An AP, portable, upright chest radiograph is compared to study dated 10/20/2017. The cardiomediastinal silhouette is unremarkable. The lungs and pleural spaces are clear. No pneumothorax is seen. The bony thorax is grossly intact. IMPRESSION: No active disease in the chest. Electronically signed by: Max Avina M.D. 11/22/2017 12:36 PM Dictated Date/Time: 11/22/2017 12:36 PM Laboratory Results 11/22/17 11:50 Red Blood Count 4.63, Mean Corpuscular Volume 86.0, Mean Corpuscular Hemoglobin 29.4, Mean Corpuscular Hemoglobin Concent 34.2, Mean Platelet Volume 12.5, Neutrophils (%) (Auto) 65.5, Lymphocytes (%) (Auto) 24.9, Monocytes (%) (Auto) 8.6, Eosinophils (%) (Auto) 0.8, Basophils (%) (Auto) 0.1, Neutrophils # (Auto) 5.77, Lymphocytes # (Auto) 2.20, Monocytes # (Auto) 0.76, Eosinophils # (Auto) 0.07, Basophils # (Auto) 0.01 11/22/17 11:50 Test 11/22/17 11:50 11/22/17 12:40 11/22/17 15:17 White Blood Count 8.82 K/uL (4.8-10.8) Red Blood Count 4.63 M/uL (4.2-5.4) Hemoglobin 13.6 g/dL (12.0-16.0) Hematocrit 39.8 % (37-47) Mean Corpuscular Volume 86.0 fL (80-100) Mean Corpuscular Hemoglobin 29.4 pg (25-34) Mean Corpuscular Hemoglobin Concent 34.2 g/dl (32-36) Platelet Count 291 K/uL (130-400) Mean Platelet Volume 12.5 fL (7.4-10.4) Neutrophils (%) (Auto) 65.5 % Lymphocytes (%) (Auto) 24.9 % Monocytes (%) (Auto) 8.6 % Eosinophils (%) (Auto) 0.8 % Basophils (%) (Auto) 0.1 % Neutrophils # (Auto) 5.77 K/uL (1.4-6.5) Lymphocytes # (Auto) 2.20 K/uL (1.2-3.4) Monocytes # (Auto) 0.76 K/uL (0.11-0.59) Eosinophils # (Auto) 0.07 K/uL (0-0.5) Basophils # (Auto) 0.01 K/uL (0-0.2) RDW Standard Deviation 40.8 fL (36.4-46.3) RDW Coefficient of Variation 13.3 % (11.5-14.5) Immature Granulocyte % (Auto) 0.1 % Immature Granulocyte # (Auto) 0.01 K/uL (0.00-0.02) Prothrombin Time 10.0 SECONDS (9.0-12.0) Prothromb Time International Ratio 1.0 (0.9-1.1) Activated Partial Thromboplast Time 25.0 SECONDS (21.0-31.0) Partial Thromboplastin Ratio 1.0 D-Dimer 1910 ug/L FEU (0-500) Anion Gap 8.0 mmol/L (3-11) Est Creatinine Clear Calc Drug Dose 96.8 ml/min Estimated GFR () 98.1 Estimated GFR (Non- 84.7 BUN/Creatinine Ratio 9.8 (10-20) Calcium Level 9.3 mg/dl (8.5-10.1) Magnesium Level 2.1 mg/dl (1.8-2.4) Total Bilirubin 0.3 mg/dl (0.2-1) Aspartate Amino Transf (AST/SGOT) 23 U/L (15-37) Alanine Aminotransferase (ALT/SGPT) 29 U/L (12-78) Alkaline Phosphatase 77 U/L (45-117) Total Protein 7.2 gm/dl (6.4-8.2) Albumin 3.6 gm/dl (3.4-5.0) Globulin 3.6 gm/dl (2.5-4.0) Albumin/Globulin Ratio 1.0 (0.9-2) Thyroid Stimulating Hormone (TSH) 1.760 uIu/ml (0.300-4.500) Urine Color YELLOW Urine Appearance CLEAR (CLEAR) Urine pH 5.0 (4.5-7.5) Urine Specific Reagan 1.010 (1.000-1.030) Urine Protein NEG (NEG) Urine Glucose (UA) NEG (NEG) Urine Ketones NEG (NEG) Urine Occult Blood NEG (NEG) Urine Nitrite NEG (NEG) Urine Bilirubin NEG (NEG) Urine Urobilinogen NEG (NEG) Urine Leukocyte Esterase NEG (NEG) Troponin I < 0.015 ng/ml (0-0.045) Medications Administered Medications (Trade) Dose Ordered Sig/Sandeep Route Start Time Stop Time Status Last Admin Dose Admin Albuterol/ Ipratropium (Duoneb) 3 ml NOW STAT INH 11/22/17 12:15 11/22/17 12:17 DC 11/22/17 12:15 3 ML Ondansetron HCl (Zofran Inj) 4 mg STK-MED ONCE .ROUTE 11/22/17 15:05 11/22/17 15:06 DC 11/22/17 15:05 4 MG Medical Decision Patient was seen and evaluated as above in room C2. Review was performed of nursing notes and vital signs. After obtaining a thorough history and physical examination the above work up was performed. She presents to us today with tightness in her chest. She is nontoxic on examination. She has a history of Wilms tumor as a child which received chemo and radiation. She also has a history of asthma and anxiety. She was given a DuoNeb reevaluated, not feeling much better. Her chest x-ray reveals no acute process. Blood work reveals no concerning leukocytosis, anemia or metabolic emergency. Troponin negative. EKG reveals normal sinus rhythm, with sinus arrhythmia, rate of 71 bpm. When compared with EKG of October 20, 2017 the QT has shortened. No evidence of ND or PE on this examination. Discussion was had regarding potential for PE with the patient. D-dimer was found to be elevated. CT scan of the chest was performed. Results as above. Unfortunately there is a cyst that was discussed with the patient on the CT. We thoroughly discussed whether or not to perform MRI at this time. I also discussed this with the attending physician in the case. Decision was made to allow the patient to follow-up in the outpatient setting with her family doctor for the MRI as recommended per radiology on the CT read. Patient verbalized understanding, and will call her family doctor first thing tomorrow to schedule follow-up. I also provided the CT findings on her discharge paperwork. I at this time do not believe that this finding is contributing to her symptoms but believe that she be performed promptly in the outpatient setting. Patient was in agreement. Troponin was negative x2. Given her workup here today, findings, as well as presentation I do not believe that she is experiencing ACS or PE. I believe she is stable for outpatient management to follow-up with the family doctor. The patient was educated that if any of her symptoms worsen she is to return. The patient was educated upon management, educated upon todays findings/results, educated upon symptoms in which to return, had questions answered prior to discharge, and was discharged home in good condition. It is also important note that although the patient's vital signs do describe to tachycardic events, the patient notes that this was during an event where she became sick and felt like she was going to throw up and she had not eating any food today and notes that that vital sign was recorded while nearly vomiting. It is important note that she did not display any sustained tachycardia here or concerning events. Case was discussed with the attending physician. In the evaluation and treatment of this patient the following differential diagnoses were entertained: ND, PE, costochondritis, pericarditis, mass, anxiety , among others. Impression Primary Impression: Chest tightness Departure Information Dispostion Home / Self-Care Condition GOOD Referrals Chase Luther III, M.D. (PCP) Patient Instructions My [facility] Additional Instructions You have been treated in the Emergency Department for a chest discomfort. For pain control, you can use the following [id number] medicines (if >12 yo): - Regular strength (325mg/tab) Tylenol (acetaminophen) 2 tabs every 4-6 hours as needed. Do not exceed 12 tablets in a 24 hour period. Avoid taking more than 3 grams (3000 mg) of Tylenol per day. This includes any other sources of acetaminophen you may take on a regular basis. - Regular strength (200 mg/tab) Advil (ibuprofen) 1-2 tabs every 4-6 hours as needed. Do not exceed a dose of 3200 mg per day. Return to the emergency department if your symptoms worsen despite treatment course outlined above. Drink plenty of water and stay well hydrated. As with any trip to the Emergency Department, you should follow-up with your Primary Care Provider from today's visit. Return to the emergency department if your symptoms persist despite treatment plan outlined above any new/concerning symptoms. Please also call your family doctor to schedule follow-up regarding your CT scan finding as listed below. Please call them as soon as possible tomorrow morning CT ANGIOGRAPHY OF THE CHEST, PULMONARY EMBOLUS PROTOCOL CLINICAL HISTORY: Shortness of breath. Chest discomfort. COMPARISON STUDY: Chest CT July 22, 2010 and chest radiograph November 22, 2017. TECHNIQUE: Following IV administration of 69 mL of Optiray-320, helical axial images of the chest were obtained utilizing the pulmonary embolus protocol. Maximal intensity projections and sagittal and coronal reformats were viewed on an independent 3D workstation. IV contrast was administered without complication. A dose lowering technique was utilized adhering to the principles of ALARA. CT DOSE: 328.23 mGy.cm FINDINGS: No pulmonary emboli are identified. There is no evidence of thoracic aortic dissection. The size of the heart is normal. There is no pericardial effusion. No enlarged axillary, mediastinal or hilar lymph nodes are noted. Note is made of a 2.5 cm water attenuation left apical abnormality shown on axial image 252 of 278. This is located between the posterior aspect of the left first and second ribs and immediately posterior to the left vertebral artery. There may be associated bony remodeling without bony destruction. There is no consolidation to suggest pneumonia. No pneumothorax or pleural effusion is noted. Central airways are patent. Upper abdomen is unremarkable.
[2017-11-22 12:36] VITALS: O2SAT 100
--- NOTE | 2017-11-22 12:37 | DIAGNOSTIC IMAGING REPORT ---
SINGLE VIEW CHEST CLINICAL HISTORY: Chest discomfort. FINDINGS: An AP, portable, upright chest radiograph is compared to study dated 10/20/2017. The cardiomediastinal silhouette is unremarkable. The lungs and pleural spaces are clear. No pneumothorax is seen. The bony thorax is grossly intact. IMPRESSION: No active disease in the chest. Electronically signed by: Max Avina M.D. 11/22/2017 12:36 PM Dictated Date/Time: 11/22/2017 12:36 PM
[2017-11-22 12:51] LABS: ALBUMIN 3.6 gm/dl (3.4-5.0); ALKALINE PHOSPHATASE 77 U/L (45-117); ALT/SGPT 29 U/L (12-78); AST/SGOT 23 U/L (15-37); BLOOD UREA NITROGEN 9 mg/dl (7-18); CALCIUM 9.3 mg/dl (8.5-10.1); CARBON DIOXIDE 25 mmol/L (21-32); CREATININE 0.91 mg/dl (0.60-1.20); GLUCOSE 91 mg/dl (70-99); POTASSIUM 4.1 mmol/L (3.5-5.1); SODIUM 137 mmol/L (136-145); TOTAL PROTEIN 7.2 gm/dl (6.4-8.2)
[2017-11-22] MEDS ORDERED: OPTIRAY 320 IV PRN (13:00)
--- NOTE | 2017-11-22 14:24 | DIAGNOSTIC IMAGING REPORT ---
CT ANGIOGRAPHY OF THE CHEST, PULMONARY EMBOLUS PROTOCOL CLINICAL HISTORY: Shortness of breath. Chest discomfort. COMPARISON STUDY: Chest CT July 22, 2010 and chest radiograph November 22, 2017. TECHNIQUE: Following IV administration of 69 mL of Optiray-320, helical axial images of the chest were obtained utilizing the pulmonary embolus protocol. Maximal intensity projections and sagittal and coronal reformats were viewed on an independent 3D workstation. IV contrast was administered without complication. A dose lowering technique was utilized adhering to the principles of ALARA. CT DOSE: 328.23 mGy.cm FINDINGS: No pulmonary emboli are identified. There is no evidence of thoracic aortic dissection. The size of the heart is normal. There is no pericardial effusion. No enlarged axillary, mediastinal or hilar lymph nodes are noted. Note is made of a 2.5 cm water attenuation left apical abnormality shown on axial image 252 of 278. This is located between the posterior aspect of the left first and second ribs and immediately posterior to the left vertebral artery. There may be associated bony remodeling without bony destruction. There is no consolidation to suggest pneumonia. No pneumothorax or pleural effusion is noted. Central airways are patent. Upper abdomen is unremarkable. IMPRESSION: 1. No pulmonary emboli identified. 2. 2.5 cm water attenuation left apical abnormality located between the first and second ribs. Differential considerations include a nerve sheath tumor, lateral meningocele and congenital cyst. An MRI of the thoracic spine with and without contrast could be obtained for further evaluation. 3. No acute intrathoracic findings. Electronically signed by: Rigo Lei M.D. 11/22/2017 2:23 PM Dictated Date/Time: 11/22/2017 1:28 PM
[2017-11-22] MEDS ORDERED: ONDANSETRON INJ 2 MG/ML 2 ML VIAL ONE (15:05)
[2017-11-22 17:10] VITALS: BP 116/85; PULSE 75; O2SAT 99
== END 2017-11-22 17:11 | disposition home or self-care (01) ==
LOC: C.EDB 11:32 → C.EDC 17:11
DX: R07.89 Other chest pain (principal); J45.909 Unspecified asthma, uncomplicated; Z85.528 Personal history of other malignant neoplasm of kidney; Z79.3 Long term (current) use of hormonal contraceptives; Z79.899 Other long term (current) drug therapy; Z79.51 Long term (current) use of inhaled steroids